=== PATIENT | male | born 1970 | race Caucasian/White ===

== ENCOUNTER 2021-02-27 13:25 | Emergency (ER) | payer OTHER ==
[~2021-02-27] VITALS: Ht 188 cm; Wt 181.4 kg
[2021-02-27 13:54] LABS: BASOPHIL 0.4 % (0-2); EOSINOPHIL 3.3 % (0-5); HCT 48.3 % (42.0-52.0); MCH 29.6 pg (25.0-31.0); MCHC 33.1 g/dL (32.0-36.0); MCV 89.3 fL (78.0-100.0); MONOCYTE 11.1 % (0-12); MPV 10.2 fL (6.0-9.5); NEUTROPHIL 48.1 % (41-80); NRBC 0; PLT 208 K/uL (150-400); RBC 5.41 M/uL (4.70-6.00); RDW 13.3 % (11.5-14.0); WBC 7.2 K/uL (4.0-10.5)
[2021-02-27 14:23] LABS: INR 0.99 (0.9-1.2); PROTHROMBIN TIME 12.5 SECONDS (11.8-13.4); PTT 24.7 SECONDS (24.4-34.7)
[2021-02-27 14:24] LABS: ALBUMIN 3.3 g/dL (3.4-5.0); BILIRUBIN - TOTAL 0.3 mg/dL (0.2-1.0); GLOBULIN (CALCULATION) 3.5 g/dL; POTASSIUM 4.1 mmol/L (3.5-5.1); TOTAL PROTEIN 6.8 g/dL (6.4-8.2)
[2021-02-27 14:32] LABS: CKMB 3.3 ng/mL (0.0-3.6)
== END 2021-02-27 15:10 | disposition other institution (70) ==
LOC: FER 13:25
PROVIDERS: Emergency Medicine
DX: I63.9 Cerebral infarction, unspecified (principal); G83.11 Monoplegia of lower limb affecting right dominant side; H53.462 Homonymous bilateral field defects, left side; H53.461 Homonymous bilateral field defects, right side; R20.2 Paresthesia of skin; R29.704 NIHSS score 4; I10 Essential (primary) hypertension; Z88.8 Allergy status to other drugs, medicaments and biological substances; Z20.822 Contact with and (suspected) exposure to COVID-19
CPT/HCPCS: 36415; 70450; 71045; 80053; 80061; 82550; 82553; 83874; 84484; 85025; 85610; 85730; 93005; J2997; J3490; Q9967; U0002

== ENCOUNTER 2021-04-17 20:18 | Emergency (ER) | payer OTHER ==
[2021-04-17] MEDS ORDERED: VENTOLIN HFA18 GM INH (22:16)
[2021-04-17] MEDS ORDERED: TESSALON PERLE100 M1 PO (22:16)
[2021-04-17] MEDS ORDERED: ONDANSETRON ODT4 MG PO (22:16)
== END 2021-04-17 23:00 | disposition home or self-care (01) ==
LOC: FER 20:18
DX: U07.1 COVID-19 (principal); I25.2 Old myocardial infarction; E11.9 Type 2 diabetes mellitus without complications; F17.210 Nicotine dependence, cigarettes, uncomplicated; Z23 Encounter for immunization; Z88.8 Allergy status to other drugs, medicaments and biological substances
CPT/HCPCS: M0243; Q0244

== ENCOUNTER 2021-07-30 00:30 | Emergency (ER) | payer OTHER ==
[~2021-07-30 00:30] MED LIST: ONDANSETRON ODT4 MG PO; TESSALON PERLE100 M1 PO; VENTOLIN HFA18 GM INH
[2021-07-30 01:54] LABS: BASOPHIL 0.2 % (0-2); EOSINOPHIL 1.8 % (0-5); HCT 50.4 % (42.0-52.0); HGB 16.8 g/dl (13.2-18.0); LYMPHOCYTE 26.2 % (15-48); MCH 29.9 pg (25.0-31.0); MCHC 33.3 g/dL (32.0-36.0); MCV 89.7 fL (78.0-100.0); MONOCYTE 10.3 % (0-12); NEUTROPHIL 61.4 % (41-80); NRBC 0; PLT 219 K/uL (150-400); RBC 5.62 M/uL (4.70-6.00); RDW 12.7 % (11.5-14.0)
[2021-07-30 02:13] LABS: BUN/CREAT RATIO (CALC) 11.7 RATIO; CREATININE 0.94 mg/dL (0.67-1.17); POTASSIUM 4.6 mmol/L (3.5-5.1)
[2021-07-30] MEDS ORDERED: NORVASC 10MG TA10 MG PO (03:14)
== END 2021-07-30 03:15 | disposition home or self-care (01) ==
LOC: FER 00:30
PROVIDERS: Internal Medicine
DX: I16.0 Hypertensive urgency (principal); I10 Essential (primary) hypertension; I25.2 Old myocardial infarction; F17.210 Nicotine dependence, cigarettes, uncomplicated; Z95.5 Presence of coronary angioplasty implant and graft; Z95.1 Presence of aortocoronary bypass graft; Z86.73 Personal history of transient ischemic attack (TIA), and cerebral infarction without residual deficits; Z88.0 Allergy status to penicillin; Z88.1 Allergy status to other antibiotic agents; Z88.8 Allergy status to other drugs, medicaments and biological substances
CPT/HCPCS: 36415; 80048; 84484; 85025; 93005; J1885; J3490